=== PATIENT | female | born 1985 | race Caucasian/White ===

== ENCOUNTER 2020-05-16 09:30 | Inpatient (IN) | payer MEDICAID, OTHER ==
[~2020-05-16] VITALS: Ht 162.6 cm; Wt 83.9 kg
[2020-05-16 09:56] LABS: BASOPHILS # (AUTO) 0.1 K/uL (0.0-8.0); BASOPHILS % (AUTO) 2.2 % (0.0-2.0); EOSINOPHILS % (AUTO) 0.2 % (0.0-7.0); HEMATOCRIT 38.9 % (31.2-41.9); LYMPHOCYTES # (AUTO) 1.9 K/uL (20.0-40.0); LYMPHOCYTES % (AUTO) 44.7 % (20.5-51.5); MEAN CORPUSCULAR HEMOGLOBIN 32.4 uug (24.7-32.8); MEAN CORPUSCULAR HGB CONC 33 g/dL (32.3-35.6); MONOCYTES # (AUTO) 0.2 K/uL (2.0-10.0); MONOCYTES % (AUTO) 4.8 % (0.0-11.0); NEUTROPHILS % (AUTO) 48.1 % (38.5-71.5); PLATELET COUNT (AUTO) 295 K/uL (179-408); RED BLOOD CELL COUNT(AUTO) 4.01 MIL/uL (3.63-4.92); WHITE BLOOD COUNT (AUTO) 4.2 K/uL (3.8-11.8)
[2020-05-16 10:04] LABS: CARBON DIOXIDE 25 mmol/L (21-32); CHLORIDE 107 mmol/L (98-107); CREATININE 0.7 mg/dL (0.6-1.3); GLUCOSE 190 mg/dL (74-106); POTASSIUM 3.7 mmol/L (3.5-5.1); UREA NITROGEN, BLOOD 7 mg/dL (7-18)
[2020-05-16 10:09] LABS: ALANINE AMINOTRANSFERASE 78 U/L (14-59); ALKALINE PHOSPHATASE 96 U/L (50-136); ASPARTATE AMINOTRANSFERASE 80 U/L (15-37); BILIRUBIN,DIRECT 0.2 mg/dL (0.0-0.2); BILIRUBIN,TOTAL 0.3 mg/dL (0.2-1.0); TOTAL PROTEIN, SERUM 7.9 g/dL (6.4-8.2)
[2020-05-16 10:10] LABS: ACETAMINOPHEN < 2.0 ug/mL (10-30)
[2020-05-16 10:40] LABS: ETHANOL 270 MG/DL (0-0)
--- NOTE | 2020-05-16 13:00 | NUR ---
at pt bedside, saliva coming out the pt mouth, increased work of breathing, non-responsive to pain ful stimuli, gag reflex present, hr to 130s. pts pant wet with warm urine. er md at bedside. ativan ordered for possible seizure. seisure preacautions implemented, airway was protected by placing the trumpet by er md. o2 sat with 5 litre nc increased to 100%. will continue to monitor the pt, [facility]
--- NOTE | 2020-05-16 13:13 | NUR ---
PT ON BED/MONITOR, OCCASIONAL MOVEMENTS, AROUSABLE TO NAME.
[2020-05-16] MEDS ORDERED: LORAZEPAM 2 MG/1 ML VIAL ONE (14:58)
[2020-05-16 15:56] LABS: ABG BASE EXCESS -2.4 mmol/L; ABG HCO3 21.9 mmol/L; ABG PCO2 36.4 mmHg (35.0-45.0); ABG PH 7.398 (7.350-7.450); ABG PO2 143.3 mmHg (75.0-100.0); ABG SITE LEFT RADIAL; ABG TOTAL HEMOGLOBIN 13.8 G/dL (12.0-16.0); COHb 0.8 % (0.5-1.5); MetHb 0.4 % (0.0-1.5); O2Hb 97.9 % (94.0-97.0); VENT MODE Nasal Cannula
[2020-05-16 16:12] LABS: *BILIRUBIN,URIN NEGATIVE (NEGATIVE); *BLOOD, URINE NEGATIVE (NEGATIVE); *CLARITY,URINE CLEAR (CLEAR); *COLOR,URINE YELLOW (YELLOW); *KETONES,URINE NEGATIVE (NEGATIVE); *UROBILINOGEN,URINE 0.2 E.U./dl (NORMAL); LEUKOCYTE ESTERASE ,URINE NEGATIVE (NEGATIVE); NITRITE, URINE NEGATIVE (NEGATIVE); PH,URINE 8.5 (5.0-8.0); UGLUCOSE NEGATIVE (NEGATIVE)
[2020-05-16 16:15] LABS: *AMPHETAMINE, URINE NEGATIVE (NEGATIVE); *CANNABINOID, URINE NEGATIVE (NEGATIVE); *COCCAINE, URINE NEGATIVE (NEGATIVE); *OPIATE, URINE NEGATIVE (NEGATIVE); *PHENCYCLIDINE SCREEN,URINE NEGATIVE (NEGATIVE)
[2020-05-16] MEDS ORDERED: levETIRAcetam IV 1,000 MG in IV DEXTROSE 5% 100 ML IV ONE (16:15)
[2020-05-16] MEDS ORDERED: IV NORMAL SALINE 500 ML BAG IV ONE (16:15)
[2020-05-16] MEDS ORDERED: levETIRAcetam 500 MG/5 ML VIAL IV ONE (16:29)
--- NOTE | 2020-05-16 16:34 | NUR ---
DR. ANDRES ACCEPTED THE PT TO CCU.
--- NOTE | 2020-05-16 16:58 | NUR ---
PT IN BED, NO SIGN OF DISTRESS, ON O2 VIA NC 3 LITRE, 98%, NON-VERNBAL .
[2020-05-16] MEDS ORDERED: ZOLPIDEM 5 MG TABLET PO PRN (18:00)
[2020-05-16] MEDS ORDERED: Z GUARD REMEDY PASTE 57 GM TUBE TOP PRN (18:00)
[2020-05-16] MEDS ORDERED: ACETAMINOPHEN 325 MG TABLET PO PRN (18:00)
[2020-05-16] MEDS ORDERED: MAGNESIUM HYDROXIDE 30 ML LIQUID UDC PO PRN (18:00)
[2020-05-16] MEDS ORDERED: PHARMACY TO ADD 1 AMP OF MVI DAILY TO IVF ONE BAG XX PRN (18:00)
[2020-05-16] MEDS ORDERED: ONDANSETRON 4 MG/2 ML VIAL IV PRN (18:00)
[2020-05-16] MEDS ORDERED: HYDROCODONE/APAP 5-325MG TABLET PO PRN (18:00)
--- NOTE | 2020-05-16 18:16 | NUR ---
PT FATHER CALLED. LIMITED [place], [place] SPEAKING ONLY. HE WILL CALL BACK LATER.
[2020-05-16] MEDS ORDERED: FOLIC ACID 5 MG/ML VIAL IV ONE (18:42)
[2020-05-16] MEDS ORDERED: THIAMINE HCL 200 MG/2 ML VIAL ONE (18:42)
[2020-05-16] MEDS: FOLIC ACID 1 MG in IV DEXTROSE 5% 50 ML IV SCH ×2 (18:43→19:50)
[2020-05-16] MEDS: IV NS 1000 ML 1,000 ML IV SCH (18:44)
[2020-05-16] MEDS: THIAMINE HCL INJ 100 MG in IV DEXTROSE 5% 50 ML IV SCH (18:44)
--- NOTE | 2020-05-16 19:08 | NUR ---
PT REMAINED COMFORTABLE ON THE BED, STILL ON THE OXYGEN VIA NC 2 LITRE, SAT 99%. PT NON-VERBAL, GAG REFLEX PRESENT, RESPONSIVE TO PAINFUL STIMULI.
--- NOTE | 2020-05-16 23:10 | NUR ---
MED SURG/TELE called; told ED MOSLEY will call back.
--- NOTE | 2020-05-16 23:15 | NUR ---
Report given to ED Elkins. Pt. admitted to tele TD, under care of Dr. Singh. Patient was not alert and orientated, non-ambulatory, vital signs were stable, Belongs List completed.
--- NOTE | 2020-05-17 | NUR ---
Patient transported to tele TD.
--- NOTE | 2020-05-17 00:20 | NUR ---
Admitted a 34 years old female with Diagnosis of Acute Encephalopathy, ETOH and PUI. Patient lethargic, but arouse to tactile stimuli. With anxiety noted when awaken. Trying to pull out IV tubing and trumphet. Sinus tachy on tele at 110-115/min. IV site on left AC intact and patent. Will start IVF per order. Seizure precaution and COVID precaution initiated. Routine admission care done. Plan of care and safety measure initiated. Continue to monitor.
[2020-05-17] MEDS: IV NS 1000 ML 1,000 ML IV SCH (00:38)
[2020-05-17] MEDS: LORAZEPAM 2 MG/1 ML VIAL IV PRN ×5 (00:39→22:08)
[2020-05-17 01:12] VITALS: BP 139/77
[2020-05-17] MEDS: IV NS 1000 ML 1,000 ML IV PRN (01:30)
[2020-05-17] MEDS ORDERED: ACETAMINOPHEN 325 MG SUPP RC PRN ×2 (03:30→04:00)
[2020-05-17 04:00] VITALS: BP 134/91
[2020-05-17] MEDS ORDERED: ACETAMINOPHEN 650 MG SUPP.RECT RC PRN ×2 (04:30→05:00)
--- NOTE | 2020-05-17 05:48 | NUR ---
IV accidentally pulled out. Placed new IV on right hand #22G.
[2020-05-17] MEDS ORDERED: LORAZEPAM 2 MG/1 ML VIAL IV STA (06:29)
--- NOTE | 2020-05-17 06:30 | NUR ---
Pt severely agitated. Trying to get out of bed, trying to remove wrist restraint, trashing, kicking. Screaming and yelling. CIWA 15. Informed Dr. Fraga and obtain order for Ativan 2mg IV x1 stat for severe agitation. Will carry out order.
--- NOTE | 2020-05-17 07:00 | NUR ---
AWAKE ALERT BUT CONFUSED X4, VERY AGITATED AND ALWAYS TRYING TO GET OUT OF BED. CONSTANT SUPERVISION DONE, CONTINUE WITH WRIST RESTRAINT. SR/ST ON MONITOR
--- NOTE | 2020-05-17 07:01 | NUR ---
Patient still lethargic, but arousable to verbal and tactile stimuli. Confused and disoriented. Calm after providing Ativan 2mg IV. Sinus tachy on tele at 113/min. IV site on left AC and right hand intact and patent. IVF infusing. Needs anticipated to and met. Seizure precaution and COVID precaution maintained. Soft wrist restraint in place. Check for circulation. Safety measure maintained.
--- NOTE | 2020-05-17 07:02 | NUR ---
Almaguer catheter intact and draining via gravity.
--- NOTE | 2020-05-17 08:00 | NUR ---
SEEN BY DR ANDRES FOR FOLLOW-UP SEE NOTES
--- NOTE | 2020-05-17 09:59 | NUR ---
SPOKE WITH DR SOLIS REGARDING PSYCH CONSULT AND SAID WILL FOLLOW-UP PATIENT TODAY
[2020-05-17 11:44] LABS: BASOPHILS # (AUTO) 0.1 K/uL (0.0-8.0); BASOPHILS % (AUTO) 0.8 % (0.0-2.0); HEMATOCRIT 40.1 % (31.2-41.9); HEMOGLOBIN 13.1 g/dL (10.9-14.3); LYMPHOCYTES # (AUTO) 1.6 K/uL (20.0-40.0); LYMPHOCYTES % (AUTO) 13.4 % (20.5-51.5); MEAN CORPUSCULAR HEMOGLOBIN 31.7 uug (24.7-32.8); MEAN CORPUSCULAR HGB CONC 33 g/dL (32.3-35.6); MEAN CORPUSCULAR VOLUME 97.5 fL (75.5-95.3); MONOCYTES # (AUTO) 0.9 K/uL (2.0-10.0); MONOCYTES % (AUTO) 7.1 % (0.0-11.0); NEUTROPHILS # (AUTO) 9.5 K/uL (1.8-8.9); NEUTROPHILS % (AUTO) 78.7 % (38.5-71.5); PLATELET COUNT (AUTO) 239 K/uL (179-408); RED BLOOD CELL COUNT(AUTO) 4.11 MIL/uL (3.63-4.92); WHITE BLOOD COUNT (AUTO) 12.1 K/uL (3.8-11.8)
[2020-05-17 11:45] VITALS: BP 142/82
[2020-05-17 13:29] LABS: CREATININE 1.1 mg/dL (0.6-1.3); MAGNESIUM 1.7 mg/dL (1.8-2.4); PHOSPHOROUS 2.2 mg/dL (2.5-4.9); POTASSIUM 3.3 mmol/L (3.5-5.1)
--- NOTE | 2020-05-17 13:40 | NUR ---
ULTRASOUND GUIDED PARACENTESIS DONE AT BEDSIDE BY RADIOLOGIST. PATIENT TOLERATED PROCEDURE. Addendum: 05/17/20 at 1750 by JANNA VALDEZ RN ERROR
--- NOTE | 2020-05-17 15:00 | NUR ---
DR SOLIS NOTIFIED OF SEVERE AGITATION AND RESTLESSNESS WITH ORDER TO START ON ZYPREXIA SL PRN SEE NOTES
[2020-05-17] MEDS ORDERED: OLANZAPINE ZYDIS 5 MG TAB.RAPDIS PO PRN (15:45)
[2020-05-17 15:59] VITALS: BP 158/72
--- NOTE | 2020-05-17 17:48 | NUR ---
DR SOLIS SPOKE WITH PATIENT VIA ALEJANDRO, SEE NOTES
--- NOTE | 2020-05-17 17:52 | NUR ---
PATIENT REMANINS TO BE AGITATED, GETTING OUT OF BED, PULLING LINES. MITTENS MAINTAINED
[2020-05-17] MEDS ORDERED: MAGNESIUM OXIDE 400 MG TABLET PO ONE (18:30)
[2020-05-17] MEDS ORDERED: POTASSIUM CHLORIDE 10 MEQ TAB.PRT.SR PO ONE (18:30)
[2020-05-17] MEDS: THIAMINE HCL INJ 100 MG in IV DEXTROSE 5% 50 ML IV SCH (18:53)
--- NOTE | 2020-05-17 19:30 | NUR ---
Received patient lying in bed. patient alert to self only. Still very anxious and restless in bed. Wrist restraint in place. Check for circulation. IV site on right FA intact at this time. IVF infusing. Sinus tachy on tele. No signs or symptoms of pain or SOB noted. Safety measure initiated. Continue to monitor. Will notify MD regarding agitation.
--- NOTE | 2020-05-17 20:55 | NUR ---
Patient still very agitated and restless, biting wrist restraint, trying to get OOB, trashing, pulled out IV. Informed SALES REPRESENTATIVE [employer] and ordered Haldol 5mg IM x1. Will carry out order. Place new IV on right AC #22G.
[2020-05-17] MEDS ORDERED: HALOPERIDOL LACTATE 5 MG/1 ML VIAL IM ONE (21:00)
[2020-05-17] MEDS: FOLIC ACID 1 MG in IV DEXTROSE 5% 50 ML IV SCH (21:05)
[2020-05-17 21:12] VITALS: BP 153/71
[2020-05-18 00:12] VITALS: BP 152/89
[2020-05-18] MEDS: IV NS 1000 ML 1,000 ML IV PRN ×2 (05:56→16:52)
--- NOTE | 2020-05-18 06:18 | NUR ---
Pt slept well and no further agitation/anxiety noted after given Haldol and Lorazepam PRN last night. More alert and awake this AM. Calm and cooperative with care. In no acute distress. No signs or symptoms of pain or SOB. NSR on tele at 96/min. IVF infusing. Seizure precaution maintained. Soft wrist restraint still in place. Check for circulation dinah. wrist. Needs anticipated to and met. Safety measure maintained.
--- NOTE | 2020-05-18 08:00 | NUR ---
SEEN BY DR ANDRES DISCUSSED PLAN OF CARE AND DC PLAN IN AM IF STABLE
[2020-05-18 09:15] LABS: BASOPHILS # (AUTO) 0.1 K/uL (0.0-8.0); BASOPHILS % (AUTO) 0.9 % (0.0-2.0); EOSINOPHILS # (AUTO) 0.1 K/uL (0.0-0.7); EOSINOPHILS % (AUTO) 1.4 % (0.0-7.0); HEMATOCRIT 41.1 % (31.2-41.9); HEMOGLOBIN 13.5 g/dL (10.9-14.3); LYMPHOCYTES # (AUTO) 2.5 K/uL (20.0-40.0); LYMPHOCYTES % (AUTO) 31.1 % (20.5-51.5); MEAN CORPUSCULAR HEMOGLOBIN 32.3 uug (24.7-32.8); MEAN CORPUSCULAR HGB CONC 33 g/dL (32.3-35.6); MONOCYTES # (AUTO) 0.5 K/uL (2.0-10.0); MONOCYTES % (AUTO) 6.2 % (0.0-11.0); NEUTROPHILS # (AUTO) 4.8 K/uL (1.8-8.9); NEUTROPHILS % (AUTO) 60.4 % (38.5-71.5); PLATELET COUNT (AUTO) 221 K/uL (179-408); RED BLOOD CELL COUNT(AUTO) 4.19 MIL/uL (3.63-4.92); WHITE BLOOD COUNT (AUTO) 7.9 K/uL (3.8-11.8)
[2020-05-18 09:24] LABS: CREATININE 0.8 mg/dL (0.6-1.3); POTASSIUM 3.1 mmol/L (3.5-5.1)
[2020-05-18] MEDS ORDERED: LORAZEPAM 2 MG/1 ML VIAL IV ONE (11:18)
[2020-05-18 11:48] VITALS: BP 114/78
--- NOTE | 2020-05-18 12:00 | NUR ---
MORE COOPERATIVE AND NO SIGNS OF AGITATION NOTED, MORE COMPLIANCE WITH CARE, BRP
--- NOTE | 2020-05-18 15:08 | NUR ---
PATIENT REMAINS STABLE, NO SIGNS OF RESTLESSNESS OR SEVERE AGITATION. PLAN DC IN AM PER DR JACK
[2020-05-18 16:00] VITALS: BP 128/81
[2020-05-18] MEDS: THIAMINE HCL INJ 100 MG in IV DEXTROSE 5% 50 ML IV SCH (17:00)
[2020-05-18] MEDS: FOLIC ACID 1 MG in IV DEXTROSE 5% 50 ML IV SCH (17:57)
[2020-05-18] MEDS: POTASSIUM CHLORIDE 20 MEQ TAB.PRT.SR PO SCH ×2 (19:15→20:33)
--- NOTE | 2020-05-18 19:15 | NUR ---
received patient awake , orient , able to follow command , calm , on ra , iv of ns at 100 ml
[2020-05-18 20:00] VITALS: BP 116/65
--- NOTE | 2020-05-18 20:00 | NUR ---
refused the iv fluids to be given
[2020-05-19] VITALS: BP 130/75
--- NOTE | 2020-05-19 | NUR ---
patient is awake , oriented , calm , cooperative , no signs of alcohol withdrawal, no tremors , no slurred speech , no sob
[2020-05-19 04:00] VITALS: BP 126/80
[2020-05-19 04:09] VITALS: BP 126/80
--- NOTE | 2020-05-19 05:00 | NUR ---
is fluid offered and still refused
[2020-05-19 06:53] LABS: BASOPHILS # (AUTO) 0.1 K/uL (0.0-8.0); BASOPHILS % (AUTO) 0.9 % (0.0-2.0); EOSINOPHILS # (AUTO) 0.3 K/uL (0.0-0.7); EOSINOPHILS % (AUTO) 3.2 % (0.0-7.0); HEMOGLOBIN 12.8 g/dL (10.9-14.3); LYMPHOCYTES % (AUTO) 34.1 % (20.5-51.5); MEAN CORPUSCULAR HGB CONC 33 g/dL (32.3-35.6); MEAN CORPUSCULAR VOLUME 97.1 fL (75.5-95.3); MONOCYTES # (AUTO) 0.4 K/uL (2.0-10.0); MONOCYTES % (AUTO) 5.1 % (0.0-11.0); NEUTROPHILS # (AUTO) 4.9 K/uL (1.8-8.9); NEUTROPHILS % (AUTO) 56.7 % (38.5-71.5); PLATELET COUNT (AUTO) 214 K/uL (179-408); RED BLOOD CELL COUNT(AUTO) 4.02 MIL/uL (3.63-4.92); WHITE BLOOD COUNT (AUTO) 8.7 K/uL (3.8-11.8)
[2020-05-19 07:11] LABS: CREATININE 0.7 mg/dL (0.6-1.3); POTASSIUM 3.3 mmol/L (3.5-5.1)
[2020-05-19] MEDS ORDERED: POTASSIUM CHLORIDE 20 MEQ TAB.PRT.SR PO ONE (07:45)
[2020-05-19 08:30] VITALS: BP 128/78
--- NOTE | 2020-05-19 08:58 | NUR ---
Received pt. ambulatory AAOX4. vitals stable. pt. moving independently and at this time pt. seen by attending physician who later stated pt. will be dcd home. with no prescriptions.
--- NOTE | 2020-05-19 09:24 | NUR ---
DCD instructions given to pt. who verbalized understanding and at the same time Requested to erase all record that show alcohol lab levels and erase information from dcd package. pt. educated on alcohol use and abuse. IV line dcd. pt. will be going home via [facility] scheduled by her. left room via wheel chair. AAOX4. vital of 128/67 hr 78. afebrile 97.7. skin bruises intact.
[2020-05-19] MEDS ORDERED: FOLIC ACID 1 MG TABLET PO SCH (20:00)
[2020-05-19] MEDS ORDERED: THIAMINE HCL 100 MG TABLET PO SCH (21:00)
== END 2020-05-19 09:30 | disposition home or self-care (01) | DRG 775 ==
LOC: ER 09:30 → TRANSITION 16:37 → TELE-TD3 18:04 → TELE3 05-17 14:41
PROVIDERS: ADMIT Family Medicine; ATTEND Family Medicine
DX: F10.129 Alcohol abuse with intoxication, unspecified (principal); Y90.8 Blood alcohol level of 240 mg/100 ml or more; G92 Toxic encephalopathy; E83.42 Hypomagnesemia; E87.6 Hypokalemia; F29 Unspecified psychosis not due to a substance or known physiological condition; R74.01 Elevation of levels of liver transaminase levels; R73.9 Hyperglycemia, unspecified; F05 Delirium due to known physiological condition; Z20.822 Contact with and (suspected) exposure to COVID-19
CPT/HCPCS: 36415; 36600; 70450; 71045; 83735; 84100; 85025; 93005; A4663; G0378; G0480; J1630; J1953; J2060; J3411; J3490; J7030; J7040; J7060; U0003